=== PATIENT | male | born 1970 | race Caucasian/White ===

== ENCOUNTER 2019-09-17 03:50 | Emergency (ER) | payer OTHER ==
--- NOTE | 2019-09-17 04:13 | PDOC ---
History of Present Illness - General Stated Complaint: L EAR PAIN Time Seen by Provider: 09/17/19 04:12 History Source: Patient Exam Limitations: No Limitations - History of Present Illness Initial Comments: Pt is a 49 yo M, with PMH of otitis externa, who is presenting with pain to his L ear since yesterday. Pt states he has a sensation of ear fullness and pain while touching the outside of his ear. Pt denies any recent swimming, but states he forgot to use his ear plugs while showering yesterday. Pt denies any fevers/chills, headache, vision changes, syncope, chest pain, palpitations, SOB, nausea/vomiting, abdominal pain, urinary symptoms, diarrhea/constipation, or leg swelling. Allergies: NKDA PCP: Dr. Thompson Social: Pt is an every day smoker. Pt denies any alcohol or drug use. Pt denies any recent travel or sick contacts. Surgical: no relevant history. Family: no relevant history. 09/17/19 04:50 Past History - Travel Traveled outside of the country in the last 30 days: No Close contact w/someone who was outside of country & ill: No - Past Medical History Allergies/Adverse Reactions: Allergies Allergy/AdvReac Type Severity Reaction Status Date / Time No Known Allergies Allergy Verified 09/17/19 04:37 Home Medications: Ambulatory Orders Ofloxacin Otic [Floxin Otic -] 10 drop DAILY 7 Days #1 bottle 09/17/19 Review of Systems - Review of Systems Able to Perform ROS?: Yes Is the patient limited [place] proficient: No Constitutional: Yes: Weight Stable. No: Chills, Diaphoresis, Fever, Loss of Appetite, Malaise, Weakness HEENTM: Yes: Ear Pain. No: Eye Pain, Recent change in vision, Ear Discharge, Nose Congestion, Throat Pain, Throat Swelling, Difficulty Swallowing Respiratory: No: Cough, Orthopnea, Shortness of Breath Cardiac (ROS): No: Chest Pain, Edema, Irregular Heart Rate, Lightheadedness, Palpitations, Syncope, Chest Tightness ABD/GI: No: Constipated, Diarrhea, Nausea, Poor Appetite, Poor Fluid Intake, Vomiting : No: Burning, Dysuria, Frequency, Flank Pain, Hematuria, Pain, Urgency Musculoskeletal: No: Back Pain, Joint Pain Integumentary: No: Rash Neurological: No: Headache, Numbness, Weakness, Unsteady Gait, Ataxia, Dizziness Psychiatric: No: Sleep Pattern Change, Change in Appetite Endocrine: No: Increased Urine, Change in Weight Hematologic/Lymphatic: No: Anemia, Blood Clots, Easy Bleeding, Easy Bruising All Other Systems: Reviewed and Negative *Physical Exam - Physical Exam Vitals stable, pt afebrile. Pt in NAD, normal body habitus. Pt alert and oriented x3. 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 No midline spinal tenderness, step-offs, or crepitus. No neck tenderness with flexion/extension. Head normocephalic, atraumatic. Eyes PERRLA, EOMI. Oropharynx without erythema or exudates, no LAD b/l. No nasal congestion. Tenderness of pinna in L ear, no effusion or erythema of TM. No drainage from ear. Hearing intact. No mastoid TTP. Clear heart sounds, S1/S2, no JVD, b/l pedal edema, or heart murmur. Clear lung sounds, no respiratory distress, wheezes, crackles, or accessory muscle use. No abdominal or CVA tenderness to palpation, no rebound, no guarding. Abdomen s oft, non-distended, and with normoactive bowel sounds. Skin without jaundice or rash. 09/17/19 04:54 Medical Decision Making - Medical Decision Making Pt was seen at bedside, also will be seen by attending Dr. Boggs. Pt presenting with tenderness to external ear, suggestive of otitis externa exacerbation. Provided 650 mg PO tylenol for improvement of pain. Pt safe for d/c to home with ENT f/u. Strict return precautions with pt understanding. Sent oflox otic drops x7 days. 09/17/19 04:56 Discharge - Discharge Information Problems reviewed: Yes Clinical Impression/Diagnosis: Otitis externa Qualifiers: Otitis externa type: unspecified type Chronicity: acute Laterality: left Qualified Code(s): H60.502 - Unspecified acute noninfective otitis externa, left ear Condition: Good Disposition: HOME - Admission No - Additional Discharge Information Prescriptions: Ofloxacin Otic [Floxin Otic -] 10 drop DAILY 7 Days #1 bottle - Follow up/Referral Referrals: Royce Gonzales [Non Staff, Medical] - Khoa Zeng MD [Staff Physician] - - Patient Discharge Instructions Patient Printed Discharge Instructions: DI for Otitis Externa Additional Instructions: You were seen in the ER today for ear pain, which is likely due to an infection of your outer ear (otitis externa). Please follow-up with your primary care doctor and ENT within 1-2 days to discuss your visit and make sure your symptoms have improved. Please return to the ER if you have any worsening pain, development of fevers or chills, loss of consciousness, inability to tolerate food or fluids, or any other concerns. I have sent medications to your pharmacy. Please take these medications as prescribed. You can take tylenol or motrin every 4-6 hours as needed for pain. - Post Discharge Activity
[2019-09-17 04:35] VITALS: BP 122/80; PULSE 96; TEMP 98.1; BMI 28.8
[2019-09-17] MEDS ORDERED: ACETAMINOPHEN 325 MG TABLET (FP) PO ONE (04:38)
[2019-09-17] MEDS ORDERED: ACETAMINOPHEN 325 MG TABLET (FP) ONE (04:41)
--- NOTE | 2019-09-17 04:49 | PDOC ---
Attending Attestation - Resident Resident Name: Irena Mcconnell - ED Attending Attestation I have performed the following: I have examined & evaluated the patient, The case was reviewed & discussed with the resident, I agree w/resident's findings & plan - HPI HPI: 09/17/19 04:47 Left ear Otitis externa; pt states that water gets in his ears when he showers. 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 and tragus - Medical Decision Making 09/17/19 04:48 Otitis externa Floxin otic 5 drops BID x 7 days Discharge - Discharge Information Problems reviewed: Yes Clinical Impression/Diagnosis: Otitis externa Qualifiers: Otitis externa type: unspecified type Chronicity: acute Laterality: left Qualified Code(s): H60.502 - Unspecified acute noninfective otitis externa, left ear Condition: Good Disposition: HOME - Additional Discharge Information Prescriptions: Clindamycin [Cleocin -] 300 mg PO Q6HPO #28 capsule Ofloxacin Otic [Floxin Otic -] 10 drop DAILY 7 Days #1 bottle - Follow up/Referral Referrals: Royce Gonzales [Non Staff, Medical] - Khoa Zeng MD [Staff Physician] - - Patient Discharge Instructions Patient Printed Discharge Instructions: DI for Otitis Externa Additional Instructions: You were seen in the ER today for ear pain, which is likely due to an infection of your outer ear (otitis externa). Please follow-up with your primary care doctor and ENT within 1-2 days to discuss your visit and make sure your symptoms have improved. Please return to the ER if you have any worsening pain, de velopment of fevers or chills, loss of consciousness, inability to tolerate food or fluids, or any other concerns. I have sent medications to your pharmacy. Please take these medications as prescribed. You can take tylenol or motrin every 4-6 hours as needed for pain. - Post Discharge Activity
== END 2019-09-17 05:01 | disposition home or self-care (01) ==
LOC: JER 03:50
DX: H60.502 Unspecified acute noninfective otitis externa, left ear (principal); F17.210 Nicotine dependence, cigarettes, uncomplicated
CPT/HCPCS: 99283-25

== ENCOUNTER 2022-10-26 19:29 | Emergency (ER) | payer OTHER ==
[2022-10-26 19:34] VITALS: BP 115/73; PULSE 98; RESP 18; TEMP 98.1; BMI 29.2
[2022-10-26] MEDS ORDERED: FLUORESCEIN NA 1 EA STRIP ONE (21:15)
[2022-10-26] MEDS ORDERED: TETRACAINE 0.5% OPHTH SOLN 2 ML BOTTLE ONE (21:15)
== END 2022-10-26 21:45 | disposition home or self-care (01) ==
LOC: JERFT 19:29
DX: T15.91XA Foreign body on external eye, part unspecified, right eye, initial encounter (principal); H57.11 Ocular pain, right eye
CPT/HCPCS: 99282-25